=== PATIENT | female | born 1995 | race Caucasian/White ===

== ENCOUNTER → 2016-06-11 | Outpatient (CLI) | payer OTHER ==
--- NOTE | 2016-06-11 12:20 | PE ---
[facility] Interpretive Statements [email or web address]
== END ==
LOC: RT 11:55
PROVIDERS: ATTEND Nurse Practitioner Family
DX: J45.40 Moderate persistent asthma, uncomplicated (principal)
CPT/HCPCS: 94060